=== PATIENT | female | born 1985 | race Two or more races ===

== ENCOUNTER 2023-11-12 13:28 | Outpatient (CLI) | payer OTHER | END 2023-11-12 13:29 | disposition home or self-care (01) | LOC: PRENATAL 13:28 | PROVIDERS: ATTEND Obstetrics & Gynecology Maternal & Fetal Medicine | DX: O35.9XX0 Maternal care for (suspected) fetal abnormality and damage, unspecified, not applicable or unspecified (principal); O35.3XX0 Maternal care for (suspected) damage to fetus from viral disease in mother, not applicable or unspecified; O44.02 Complete placenta previa NOS or without hemorrhage, second trimester; O09.512 Supervision of elderly primigravida, second trimester; Z3A.19 19 weeks gestation of pregnancy ==

== ENCOUNTER 2024-01-15 15:17 | Outpatient (CLI) | payer OTHER | END 2024-01-15 15:19 | disposition home or self-care (01) | LOC: PRENATAL 15:17 | PROVIDERS: ATTEND Obstetrics & Gynecology Maternal & Fetal Medicine | DX: O26.849 Uterine size-date discrepancy, unspecified trimester (principal); O09.519 Supervision of elderly primigravida, unspecified trimester; Z3A.28 28 weeks gestation of pregnancy ==

== ENCOUNTER 2024-01-31 20:23 | Inpatient (IN) | payer OTHER ==
[~2024-01-31] VITALS: Ht 162.6 cm; Wt 65.8 kg
[2024-01-31 19:56] VITALS: BP 122/75
[2024-01-31] MEDS ORDERED: BETAMETHASONE ACETATE,SOD PHOS 30 MG/5 ML ML IM ONE (20:45)
[2024-01-31] MEDS ORDERED: NIFEDIPINE 30 MG TAB.SA.OSM PO ONE (20:45)
[2024-01-31] MEDS ORDERED: RINGERS SOLUTION,LACTATED 1,000 ML IV SCH (20:45)
[2024-01-31 21:04] LABS: URINE APPEARANCE Cloudy; URINE BILIRRUBIN Negative (NEGATIVE); URINE BLOOD Negative; URINE COLOR Yellow; URINE GLUCOSE Negative (NEGATIVE); URINE LEUKOCYTE Moderate; URINE NITRATE Negative; URINE UROBILINOGEN 0.2 E.U./dl
[2024-01-31 21:04] LABS: HEMATOCRIT 32.4 % (36.0-45.00); HEMOGLOBIN 11.5 g/dL (12.0-15.00); MEAN CELL VOLUME 85.3 fL (80.00-100.00); MEAN CORPUSCULAR HEMOGLOBIN 30.3 pg (27.00-32.0); MEAN CORPUSCULAR HGB CONC 35.5 g/dl (32.0-36.0); PLATELET COUNT 204 K/uL (150-450); RED CELL DISTRIBUTION WIDTH 13.3 % (11.5-14.5)
[2024-01-31 21:05] LABS: URINE BACTERIA 117.1 uL (0.0-1933); URINE EPITHELIAL CELLS 11.9 uL (0.0-38.8); URINE RBC 44.5 uL (0.0-20.8); URINE WBC 1133.3 uL (0.0-23.2)
[2024-01-31 21:07] LABS: URINE CAST 0.15 uL (0.0-1.40); URINE KETONE 80 (NEGATIVE); URINE PROTEIN 100 (NEGATIVE)
[2024-01-31] MEDS ORDERED: PRENATAL TABLE1 EAC1 PO (21:14)
[2024-01-31] MEDS ORDERED: DURICEF PO (21:15)
[2024-01-31] MEDS ORDERED: NIFEDIPINE20 MG PO (21:15)
[2024-01-31 21:33] LABS: INR < 0.93; PARTIAL THROMBOPLASTIN TIME 27.2 SECONDS (22.0-34.0); PROTHROMBIN TIME 10.1 SECONDS (9.0-11.5)
[2024-01-31] MEDS ORDERED: MEPERIDINE HCL/PF 50 MG/ML VIAL IV ONE (21:45)
[2024-01-31] MEDS ORDERED: PROMETHAZINE HCL 25 MG/ML AMPUL IV ONE (21:45)
[2024-01-31] MEDS ORDERED: CEFAZOLIN SODIUM 1,000 MG VIAL IV SCH (21:45)
[2024-01-31 23:14] VITALS: BP 115/66
[2024-02-01 04:35] VITALS: BP 106/63
[2024-02-01 06:12] VITALS: BP 109/67; O2SAT 97
[2024-02-01] MEDS ORDERED: PROMETHAZINE HCL 25 MG/ML AMPUL IV PRN (07:15)
[2024-02-01] MEDS ORDERED: MEPERIDINE HCL/PF 50 MG/ML VIAL IV PRN (07:15)
[2024-02-01] MEDS ORDERED: MEPERIDINE HCL/PF 50 MG/ML VIAL IV NR (07:20)
[2024-02-01] MEDS ORDERED: PROMETHAZINE HCL 25 MG/ML AMPUL IV NR (07:20)
[2024-02-01 12:00] VITALS: BP 112/66
[2024-02-01 15:22] VITALS: BP 110/72; O2SAT 99
[2024-02-01] MEDS ORDERED: NIFEDIPINE 30 MG TAB.SA.OSM PO SCH (17:59)
[2024-02-01 19:43] VITALS: BP 107/67
[2024-02-01] MEDS ORDERED: BETAMETHASONE ACETATE,SOD PHOS 30 MG/5 ML ML IM NR (20:45)
[2024-02-01 23:18] VITALS: BP 102/68
[2024-02-02 03:32] VITALS: BP 105/65
[2024-02-02 07:36] VITALS: BP 102/65
[2024-02-02 11:24] VITALS: BP 100/65
[2024-02-02 15:13] VITALS: BP 105/69
[2024-02-02 19:15] VITALS: BP 108/67
[2024-02-02] MEDS ORDERED: DIPHENHYDRAMINE HCL 50 MG/ML VIAL 1ML IV SCH (21:00)
[2024-02-02 23:18] VITALS: BP 99/57
[2024-02-03 03:41] VITALS: BP 108/64
[2024-02-03 07:19] VITALS: BP 103/63
[2024-02-03 11:19] VITALS: BP 106/66
[2024-02-03 15:16] VITALS: BP 109/68
[2024-02-03 16:10] VITALS: BP 109/70
[2024-02-03 23:54] VITALS: BP 99/62
[2024-02-04 08:00] VITALS: BP 112/71
[2024-02-04] MEDS ORDERED: TERBUTALINE SULFATE 1 MG/ML AMPUL SUBCUTANEO SCH (12:59)
[2024-02-04] MEDS ORDERED: TERBUTALINE SULFATE 1 MG/ML AMPUL SUBCUTANEO STA (12:59)
[2024-02-04 13:26] VITALS: BP 131/73
[2024-02-04 16:00] VITALS: BP 101/62
[2024-02-05] MEDS ORDERED: PROMETHAZINE HCL 25 MG/ML AMPUL IV ONE (00:45)
[2024-02-05] MEDS ORDERED: MEPERIDINE HCL/PF 50 MG/ML VIAL IV ONE (00:45)
[2024-02-05 01:19] VITALS: BP 95/62
[2024-02-05 08:06] VITALS: BP 119/50
[2024-02-05 15:55] VITALS: BP 100/56
[2024-02-06 00:40] VITALS: BP 124/78
[2024-02-06] MEDS ORDERED: PROMETHAZINE HCL 25 MG/ML AMPUL IV ONE (01:15)
[2024-02-06] MEDS ORDERED: MEPERIDINE HCL/PF 50 MG/ML VIAL IV ONE (01:15)
[2024-02-06 08:07] VITALS: BP 94/54
[2024-02-06 11:14] VITALS: BP 117/75
[2024-02-06] MEDS ORDERED: CEFTRIAXONE SODIUM 1,000 MG VIAL IV SCH (12:23)
[2024-02-06 15:39] VITALS: BP 113/68
[2024-02-06 20:40] VITALS: BP 113/73
[2024-02-06 23:42] VITALS: BP 118/72
[2024-02-07] VITALS (7 sets, daily range): BP systolic 107–123; BP diastolic 63–87; O2SAT 97
[2024-02-08 03:05] VITALS: BP 116/72
[2024-02-08 06:14] VITALS: BP 112/75; O2SAT 97
[2024-02-08 11:29] VITALS: BP 108/64
[2024-02-08 15:16] VITALS: BP 102/67
[2024-02-08 19:15] VITALS: BP 106/67
[2024-02-08 23:20] VITALS: BP 126/78
[2024-02-09 03:11] VITALS: BP 98/55
[2024-02-09 07:47] VITALS: BP 114/71
[2024-02-09 11:36] VITALS: BP 120/73
[2024-02-09 15:18] VITALS: BP 104/63
[2024-02-09 19:15] VITALS: BP 121/74
[2024-02-10 00:34] VITALS: BP 116/73
[2024-02-10 08:06] VITALS: BP 106/64
[2024-02-10 16:00] VITALS: BP 112/73
[2024-02-11 01:51] VITALS: BP 112/66
[2024-02-11 07:57] VITALS: BP 111/69
[2024-03-01] MEDS ORDERED: BETAMETHASONE ACETATE,SOD PHOS 30 MG/5 ML ML IM ONE (21:10)
== END 2024-02-11 13:33 | DRG 832 ==
LOC: LDR 20:23 → OB/GYN 02-03 15:09
PROVIDERS: ADMIT Obstetrics & Gynecology Obstetrics; ATTEND Obstetrics & Gynecology Obstetrics
PROC: 4A1HXCZ Monitoring of Products of Conception, Cardiac Rate, External Approach (ICD-10-PCS; principal; 2024-01-31)
PROC: BY4FZZZ Ultrasonography of Third Trimester, Single Fetus (ICD-10-PCS; 2024-02-01)
PROC: BU4CZZZ Ultrasonography of Uterus and Ovaries (ICD-10-PCS; 2024-02-01)
DX: O60.03 Preterm labor without delivery, third trimester (principal); O44.03 Complete placenta previa NOS or without hemorrhage, third trimester; O36.8130 Decreased fetal movements, third trimester, not applicable or unspecified; O26.843 Uterine size-date discrepancy, third trimester; Z3A.31 31 weeks gestation of pregnancy; Z20.822 Contact with and (suspected) exposure to COVID-19

== ENCOUNTER → 2024-03-12 13:49 | Outpatient (CLI) | payer OTHER ==
[~2024-03-12 13:49] MED LIST: DURICEF PO; NIFEDIPINE20 MG PO; PRENATAL TABLE1 EAC1 PO
== END | disposition home or self-care (01) ==
LOC: PRENATAL 13:49
PROVIDERS: ATTEND Obstetrics & Gynecology Maternal & Fetal Medicine
DX: O26.849 Uterine size-date discrepancy, unspecified trimester (principal); O36.8199 Decreased fetal movements, unspecified trimester, other fetus; O09.519 Supervision of elderly primigravida, unspecified trimester; Z3A.36 36 weeks gestation of pregnancy

== ENCOUNTER 2024-04-04 06:27 | Inpatient (IN) | payer OTHER ==
[~2024-04-04] VITALS: Ht 162.6 cm; Wt 73.5 kg
[2024-04-04 07:00] VITALS: BP 140/83
[2024-04-04 08:32] LABS: HEMATOCRIT 34.6 % (36.0-45.00); HEMOGLOBIN 11.9 g/dL (12.0-15.00); MEAN CELL VOLUME 87.4 fL (80.00-100.00); MEAN CORPUSCULAR HEMOGLOBIN 30.1 pg (27.00-32.0); MEAN CORPUSCULAR HGB CONC 34.4 g/dl (32.0-36.0); PLATELET COUNT 112 K/uL (150-450); RED BLOOD COUNT 3.96 M/uL (4.00-6.00); RED CELL DISTRIBUTION WIDTH 14.3 % (11.5-14.5)
[2024-04-04 08:33] LABS: PH,URINE 6.5 (5.0-8.0); URINE APPEARANCE Cloudy; URINE BILIRRUBIN Negative (NEGATIVE); URINE BLOOD Negative; URINE COLOR Yellow; URINE GLUCOSE Negative (NEGATIVE); URINE KETONE Negative (NEGATIVE); URINE LEUKOCYTE Small; URINE NITRATE Negative; URINE PROTEIN Trace (NEGATIVE)
[2024-04-04 08:36] LABS: URINE EPITHELIAL CELLS 26.1 uL (0.0-38.8); URINE RBC 24.3 uL (0.0-20.8); URINE WBC 336.2 uL (0.0-23.2)
[2024-04-04 09:03] LABS: INR < 0.93; PARTIAL THROMBOPLASTIN TIME 28.8 SECONDS (22.0-34.0); PROTHROMBIN TIME 9.7 SECONDS (9.0-11.5)
[2024-04-04 09:10] LABS: URINE CAST 0.73 uL (0.0-1.40); URINE YEAST FEW /hpf
[2024-04-04 10:11] LABS: ALBUMIN 2.5 gm/dL (3.4-5.0); BILIRUBIN TOTAL 0.29 mg/dL (0.3-1.2); CALCIUM 9.2 mg/dL (8.5-10.1); CREATININE SERUM 0.36 mg/dL (0.55-1.02); GFR 203.95; GLOBULINA 3.1 G/DL (2.4-3.5); POTASSIUM 3.73 mEq/L (3.5-5.1); TOTAL PROTEIN 5.6 gm/dL (6.4-8.2)
[2024-04-04 12:15] VITALS: BP 137/80
[2024-04-04] MEDS ORDERED: MISOPROSTOL 25 MCG/4 ML GEL.W.APPL VAG ONE (12:15)
[2024-04-04 15:57] VITALS: BP 134/78
[2024-04-04] MEDS ORDERED: MISOPROSTOL 25 MCG/4 ML GEL.W.APPL ONE (18:31)
[2024-04-04 23:32] VITALS: BP 132/79
[2024-04-05 03:15] VITALS: BP 132/82
[2024-04-05 07:58] VITALS: BP 131/81
[2024-04-05] MEDS ORDERED: ERYTHROMYCIN BASE OPHT 1GM EACH TUBE OP ONE (11:24)
[2024-04-05] MEDS ORDERED: OXYTOCIN 10 UNITS/ML VIAL ONE (11:24)
[2024-04-05] MEDS ORDERED: CEFAZOLIN SODIUM 1,000 MG VIAL ONE (13:17)
[2024-04-05] MEDS ORDERED: MORPHINE SULFATE 4 MG/ML CARTRIDGE IV PRN (14:45)
[2024-04-05] MEDS ORDERED: MORPHINE SULFATE 4 MG/ML VIAL IV ONE ×2 (15:55→16:25)
[2024-04-05 18:35] VITALS: BP 156/95
[2024-04-06 00:13] VITALS: BP 138/85
[2024-04-06] MEDS ORDERED: CYCLOBENZAPRINE HCL 5 MG TABLET PO PRN (01:00)
[2024-04-06 08:00] VITALS: BP 150/80
[2024-04-06] MEDS ORDERED: OxyCODONE HCL/APAP UD (PERCOCET) PO PRN (10:15)
[2024-04-06 17:09] VITALS: BP 140/80
[2024-04-07 01:00] VITALS: BP 130/85
[2024-04-07 08:05] VITALS: BP 128/82
[2024-04-07 15:41] VITALS: BP 135/83
[2024-04-07] MEDS ORDERED: SIMETHICONE 125 MG CAPSULE PO SCH (17:00)
[2024-04-08 00:33] VITALS: BP 124/74
[2024-04-08 08:55] VITALS: BP 137/78
== END 2024-04-08 15:50 | disposition home or self-care (01) | DRG 788 ==
LOC: LDR 06:27 → OB/GYN 04-05 14:48
PROVIDERS: ADMIT Obstetrics & Gynecology Obstetrics; ATTEND Obstetrics & Gynecology Obstetrics
PROC: 4A1HXCZ Monitoring of Products of Conception, Cardiac Rate, External Approach (ICD-10-PCS; 2024-04-04)
PROC: 3E0P7VZ Introduction of Hormone into Female Reproductive, Via Natural or Artificial Opening (ICD-10-PCS; 2024-04-04)
PROC: 3E033VJ Introduction of Other Hormone into Peripheral Vein, Percutaneous Approach (ICD-10-PCS; 2024-04-05)
PROC: 10D00Z1 Extraction of Products of Conception, Low, Open Approach (ICD-10-PCS; principal; 2024-04-05 12:15)
DX: O82 Encounter for cesarean delivery without indication (principal); O62.0 Primary inadequate contractions; Z3A.40 40 weeks gestation of pregnancy; Z37.0 Single live birth